=== PATIENT | female | born 1980 | race Caucasian/White ===

== ENCOUNTER → 2019-05-03 | Outpatient (CLI) | payer BC | LOC: CARD 12:33 | PROVIDERS: ATTEND Internal Medicine Cardiovascular Disease | DX: I10 Essential (primary) hypertension (principal); R07.9 Chest pain, unspecified; R00.2 Palpitations | CPT/HCPCS: 36415; 84703; 93225; 93226; 93306 ==

== ENCOUNTER → 2019-05-04 | Outpatient (CLI) | payer BC, OTHER ==
[~2019-05-04] VITALS: Ht 170 cm; Wt 147.0 kg
[~2019-05-04] MED LIST: CATHETER FLUSH 10 ML SYR IV PRN
[2019-05-04 13:26] VITALS: BP 126/63
--- NOTE | 2019-05-04 16:11 | STRESS TEST ---
DATE OF SERVICE: 05/04/2019 RESTING AND POST EXERCISE TECHNETIUM-99M TETROFOSMIN SPECT CT IMAGING ORDERING PHYSICIAN: Dr. Snell. CLINICAL DIAGNOSES: Chest discomfort, palpitations. Baseline images were carried out after injection of 10.66 mCi of technetium-99m Tetrofosmin. Exercise was then carried out on a treadmill. The rhythm remained sinus. At rest, there were isolated premature ventricular contractions. None were seen during the exercise part of the stress test. The patient exercised for a total of 7 minutes and 43 seconds in the Oliver protocol. The test was stopped on account of her dizziness and fatigue. She attained 96% of maximum predicted heart rate. After she had attained more than 85% of maximum predicted heart rate and had indicated that she would not be able for more than another minute, 30.7 mCi of technetium-99m Tetrofosmin were injected and the exercise was continued for another minute. There was considerable baseline artifact with exercise, but there did not appear to be significant ST segment depression. Blood pressure response to exercise was hypertensive. Heart rate response to exercise was normal. Review of images at rest and following stress does not indicate significant perfusion defects consistent with myocardial ischemia or infarction. Gated images show normal global left ventricular systolic function, normal regional wall motion. Left ventricular ejection fraction is calculated to be 72%. Left ventricular end diastolic volume is 57 mL. TID is absent (0.88). CONCLUSIONS: 1. No evidence of significant myocardial ischemia or infarction on this study. 2. Low exercise capacity. 3. Hypertensive response to exercise. 4. Normal global left ventricular systolic function with an ejection fraction of 72%. Job ID: [id number] DocumentID: [id number] Dictated Date: 05/04/2019 15:43:58 Composite [employer]up Worker Date: 05/04/2019 16:10:03 Dictated By: SARAH SNELL MD, MA, FACP, FACC,
== END ==
LOC: CARD 12:20
PROVIDERS: ATTEND Internal Medicine Cardiovascular Disease
DX: R07.9 Chest pain, unspecified (principal); R00.2 Palpitations; I10 Essential (primary) hypertension
CPT/HCPCS: 78452; 93017